=== PATIENT | female | born 1980 | race Caucasian/White ===

== ENCOUNTER 2019-12-22 01:36 | Observation (INO) ==
[2019-12-22] MEDS ORDERED: Ondansetron 4 MG/2 ML VIAL IVP PRN (02:06)
[2019-12-22] MEDS ORDERED: Naloxone 0.4 MG/ML INJ IVP PRN (02:06)
[2019-12-22] MEDS ORDERED: Ringers Solution, Lactated 1,000 ML IVC SCH (02:15)
[2019-12-22] MEDS ORDERED: Ipratropium/Albuterol Neb 3 ML IH PRN (04:49)
[2019-12-22] MEDS ORDERED: Doxycycline 100 MG in 0.9 % Sodium Chloride Mini Bag 100 ML IVPB SCH (06:00)
[2019-12-22] MEDS: *HR* Heparin 5,000 UNIT/ML VIAL SQ SCH ×2 (07:00→14:00)
[2019-12-22] MEDS: Ipratropium/Albuterol Neb 3 ML IH SCH ×2 (07:59→10:57)
[2019-12-22] MEDS ORDERED: Piperacillin/Tazobactam 3.375 GM in 0.9 % Sodium Chloride Mini Bag 100 ML IVPB SCH (08:00)
[2019-12-22 10:54] VITALS: BP 96/65
[2019-12-22] MEDS ORDERED: Acetaminophen 325 MG TABLET PO PRN (14:53)
[2019-12-22] MEDS ORDERED: Aminoglycoside Consult 1 EACH MC ONE (15:14)
[2019-12-22 19:16] LABS: Enterococcus by PCR Not Detected (Not Detect); blaKPC Carbapenem-Resist Gene Not Detected (Not Detect); mecA Methicillin-Resist Gene Not Detected (Not Detect); vanA/B Vancomycin-Resist Genes Not Detected (Not Detect)
[2019-12-22 19:17] LABS: Acinetobacter baumannii by PCR Not Detected (Not Detect); Candida albicans by PCR Not Detected (Not Detect); Candida glabrata by PCR Not Detected (Not Detect); Candida krusei by PCR Not Detected (Not Detect); Candida parapsilosis by PCR Not Detected (Not Detect); Candida tropicalis by PCR Not Detected (Not Detect); Enterobacter cloacae Cmplx PCR Not Detected (Not Detect); Enterobacteriaceae by PCR Not Detected (Not Detect); Escherichia coli by PCR Not Detected (Not Detect); Klebsiella oxytoca by PCR Not Detected (Not Detect); Klebsiella pneumoniae by PCR Not Detected (Not Detect); Proteus by PCR Not Detected (Not Detect); Pseudomonas aeruginosa by PCR Not Detected (Not Detect); Serratia marcescens by PCR Not Detected (Not Detect); Staphylococcus aureus by PCR DETECTED (Not Detect); Streptococcus agalactiae(B)PCR Not Detected (Not Detect); Streptococcus by PCR Not Detected (Not Detect); Streptococcus pneumoniae PCR Not Detected (Not Detect); Streptococcus pyogenes (A) PCR Not Detected (Not Detect)
== END 2019-12-22 15:15 | disposition left against medical advice (07) ==
LOC: 3BNU → SUATTDRO 01:36
PROVIDERS: ADMIT Family Medicine; ATTEND Internal Medicine